=== PATIENT | female | born 1980 | race Caucasian/White ===

== ENCOUNTER 2016-11-03 16:57 | Emergency (ER) | payer MEDICAID, OTHER ==
[~2016-11-03] VITALS: Ht 167.6 cm; Wt 59.0 kg
[2016-11-03 18:54] LABS: BASOPHILS % 0.9 % (0.0-2.0); EOSINOPHILS % 2.9 % (0.0-5.0); HEMATOCRIT. 37.5 % (36.0-48.0); HEMOGLOBIN. 12.4 g/dL (12.0-16.0); MEAN CORPUSCULAR HEMOGLOBIN 29.6 pg (28.0-32.0); MEAN CORPUSCULAR VOLUME 89.6 fL (81.0-99.0); MEAN PLATELET VOLUME 8.7 fl (7.4-10.4); MONOCYTES % 8.2 % (2.0-8.0); PLATELET 254 x1000/uL (130-400); RED BLOOD CELL COUNT 4.18 mill/uL (4.2-5.4); WHITE BLOOD COUNT 7.6 x1000/uL (4.5-11.0)
[2016-11-03 19:01] LABS: ANION GAP 12; CALCIUM 8.3 mg/dL (8.5-10.1); CARBON DIOXIDE 27 mEq/L (21-32); CHLORIDE 106 mEq/L (98-107); INDEX HEMOLYSI 1 (1-3); INDEX ICTERIC 1 (1-4); INDEX LIPEMIC 1 (1-3); UREA NITROGEN BLOOD 22 mg/dL (7-21)
[2016-11-03 19:04] LABS: ACETAMINOPHEN < 2 ug/mL (10-30); ETHANOL BLOOD < 10 mg/dL; eGFR > 60 mL/min (>60)
[2016-11-03 19:15] LABS: *BARBITURATES SCREEN URINE NEGATIVE (NEGATIVE); *BENZODIAZEPINES SCREEN URINE NEGATIVE (NEGATIVE); *COCAINE SCREEN URINE NEGATIVE (NEGATIVE); CANNABINOID URINE SCREEN NEGATIVE (NEGATIVE); ECSTASY MDMA SCREEN URINE NEGATIVE (NEGATIVE); METHADONE URINE SCREEN NEGATIVE (NEGATIVE); OPIATES URINE SCREEN NEGATIVE (NEGATIVE); PHENCYCLIDINE URINE SCREEN NEGATIVE (NEGATIVE)
[2016-11-03 19:27] LABS: *AMPHETAMINES SCREEN URINE PRESUMTIVE POSITIVE (NEGATIVE)
[2016-11-03 20:33] LABS: HCG SCREEN NEGATIVE
[2016-11-06 10:00] VITALS: BP 128/70
== END 2016-11-06 11:08 | disposition home or self-care (01) ==
LOC: ER 16:57
DX: F15.10 Other stimulant abuse, uncomplicated (principal); F20.9 Schizophrenia, unspecified; F17.210 Nicotine dependence, cigarettes, uncomplicated; Z88.0 Allergy status to penicillin
CPT/HCPCS: 36415; 80048; 80305; 80329; 82962; 84703; 85025; 99285; G0482; 80307

== ENCOUNTER 2016-11-30 21:32 | Emergency (ER) | payer MEDICAID ==
[~2016-11-30] VITALS: Ht 165.1 cm; Wt 84.0 kg
[2016-11-30] MEDS ORDERED: SODIUM CHLORIDE 0.9% 1,000 ML IV ONE (22:50)
[2016-11-30] MEDS ORDERED: LORAZEPAM 2MG/ML CPJ IV STA (22:50)
[2016-11-30 23:06] LABS: EOSINOPHILS % 1.6 % (0.0-5.0); HEMATOCRIT. 40.4 % (36.0-48.0); HEMOGLOBIN. 13.5 g/dL (12.0-16.0); LYMPHOCYTES % 24.6 % (20.0-50.0); MEAN CORPUSCULAR HEMOGLOBIN 29.1 pg (28.0-32.0); MEAN CORPUSCULAR HGB CONC 33.3 g/dL (31.0-37.0); MEAN CORPUSCULAR VOLUME 87.4 fL (81.0-99.0); MEAN PLATELET VOLUME 8.5 fl (7.4-10.4); MONOCYTES % 9.1 % (2.0-8.0); NEUTROPHILS % 63.7 % (40.0-76.0); PLATELET 293 x1000/uL (130-400); RED BLOOD CELL COUNT 4.62 mill/uL (4.2-5.4); RED CELL DISTRIBUTION WIDTH 14.5 % (11.6-14.6); WHITE BLOOD COUNT 10.3 x1000/uL (4.5-11.0)
[2016-11-30 23:20] LABS: ALANINE AMINOTRANSFERASE 24 IU/L (13-61); ALBUMIN 3.6 g/dL (3.4-5.0); ANION GAP 14; CALCIUM 8.8 mg/dL (8.5-10.1); CARBON DIOXIDE 25 mEq/L (21-32); CHLORIDE 104 mEq/L (98-107); ETHANOL BLOOD < 10 mg/dL; HCG SCREEN NEGATIVE; INDEX HEMOLYSI 1 (1-3); INDEX ICTERIC 1 (1-4); INDEX LIPEMIC 1 (1-3); UREA NITROGEN BLOOD 16 mg/dL (7-21); eGFR > 60 mL/min (>60)
[2016-12-01 06:06] VITALS: BP 138/79
== END 2016-12-01 10:30 | disposition left against medical advice (07) ==
LOC: ER 22:47
DX: F19.10 Other psychoactive substance abuse, uncomplicated (principal); R03.0 Elevated blood-pressure reading, without diagnosis of hypertension; Z86.19 Personal history of other infectious and parasitic diseases; F20.9 Schizophrenia, unspecified; Z88.0 Allergy status to penicillin
CPT/HCPCS: 36415; 80053; 84703; 85025; 93005; 99285; G0482; 99284; J7030

== ENCOUNTER 2017-01-03 17:39 | Emergency (ER) | payer MEDICAID ==
[~2017-01-03] VITALS: Ht 162.6 cm; Wt 68.0 kg
[2017-01-03 17:42] VITALS: BP 140/90
[2017-01-03] MEDS ORDERED: [UNRECOGNIZED DRUG - REMARK] (17:46)
== END 2017-01-03 23:18 | disposition left against medical advice (07) ==
LOC: ER 17:40
DX: Z53.21 Procedure and treatment not carried out due to patient leaving prior to being seen by health care provider (principal)